=== PATIENT | male | born 1945 | race Caucasian/White ===

== ENCOUNTER 2017-08-04 05:21 | Inpatient (IN) | payer MEDICARE, OTHER ==
[2017-07-27 12:35] LABS: BASOPHILS % (AUTO) 0.4 % (0-1); EOSINOPHILS # (AUTO) 0.1 X10'3 (0-0.9); EOSINOPHILS % (AUTO) 1.4 % (0-6); LYMPHOCYTES # (AUTO) 0.9 X10'3 (1.1-4.8); LYMPHOCYTES % (AUTO) 15.8 % (21-51); MEAN CORPUSCULAR HEMOGLOBIN 32.2 PG (27.0-31.0); MEAN CORPUSCULAR HGB CONC 35.2 % (33.0-36.5); MEAN CORPUSCULAR VOLUME 91.4 FL (78-98); MEAN PLATELET VOLUME 8.5 FL (7.4-10.4); MONOCYTES # (AUTO) 0.4 X10'3 (0-0.9); MONOCYTES % (AUTO) 7.5 % (2-12); NEUTROPHILS # (AUTO) 4.3 X10'3 (1.8-7.7); NEUTROPHILS % (AUTO) 74.9 % (42-75); PRE OP HEMATOCRIT 39.5 % (42.0-52.0); PRE OP HEMOGLOBIN 13.9 g/dL (14.0-17.9); PRE OP PLATELET COUNT 254 X10'3 (140-440); RED BLOOD COUNT 4.32 X10'6 (4.70-6.10); RED CELL DISTRIBUTION WIDTH 13.2 % (11.5-14.5)
[2017-07-27 12:40] LABS: ALBUMIN 3.7 G/DL (3.4-5.0); ALBUMIN/GLOBULIN RATIO 0.7 (1.1-1.5); ALKALINE PHOSPHATASE 81 IU/L (46-116); BLOOD UREA NITROGEN 16 MG/DL (7-18); BUN/CREATININE RATIO 13.4 (5.4-32.0); CALCIUM 9.3 MG/DL (8.5-10.1); CHLORIDE 105 MMOL/L (99-107); CREATININE 1.19 MG/DL (0.60-1.10); PRE OP ALT 33 U/L (30-65); PRE OP ANION GAP 10 (8-16); PRE OP AST 20 U/L (10-37); PRE OP BILIRUB, TOTAL 0.5 MG/DL (0.0-1.0); PRE OP SODIUM 145 MMOL/L (135-145); TOTAL CARBON DIOXIDE 30.2 MMOL/L (24-32); eGFR 60 ML/MIN
[2017-07-27 12:43] LABS: CLARITY,URINE CLEAR (Clear); COLOR,URINE STRAW (Yellow); GLUCOSE, URINE NEGATIVE (Neg); KETONES,URINE NEGATIVE (Neg); LEUKOCYTE ESTERASE ,URINE NEGATIVE (Neg); NITRITES, URINE NEGATIVE (Neg); OCCULT BLOOD,URINE SMALL (Neg); PROTEIN,URINE NEGATIVE (Neg); UA COLLECTION TYPE CLN CATCH MIDSTREAM; UROBILINOGEN,URINE 0.2 E.U/dL (0.2-1.0)
[2017-07-27 12:50] LABS: BACTERIA,URINE FEW /HPF (Neg); RBC,URINE 0-2 /HPF (0-2); WBC,URINE NONE SEEN /HPF (0-4)
[2017-07-27 12:51] LABS: SQUAMOUS EPITHELIAL CELL,UR FEW /LPF (FEW)
[2017-07-27 12:56] LABS: PRE OP GLUCOSE 127 MG/DL (70-104)
[2017-07-29 15:07] LABS: PRE OP POTASSIUM 3.1 MMOL/L (3.4-5.1)
[~2017-08-04] VITALS: Ht 170.2 cm; Wt 95.3 kg
[2017-08-04] VITALS (25 sets, daily range): BP systolic 96–190; BP diastolic 50–101
[~2017-08-04 05:21] MED LIST: CLON0.1T20 PO; DULO60CA64 PO; HYDR28.457 TP; LEVO200T8 PO; LORA0.5T PO; LOSA1TAB39 PO; MELA3TAB PO; MELO-102 PO; METO50TA16 PO; MIRT45TA6 PO; TAMS0.4C32 PO; TRAM50TA2 PO
[2017-08-04] MEDS ORDERED: VANCOMYCIN INJ 1000 MG in NORMAL SALINE 250ml IV.SOLN IV ONE (05:30)
[2017-08-04] MEDS ORDERED: DOCUMENT DATE & TIME OF BETA-BLOCKER PO ONE (05:30)
[2017-08-04] MEDS ORDERED: famotidine 20mg tablet PO ONE (05:30)
[2017-08-04] MEDS ORDERED: cefazolin/dext.iso 2gm/50ml 50 ML IV ONE (05:30)
[2017-08-04] MEDS ORDERED: LIDOcaine 1% (10mg/ml) 2ml vial ONE (05:59)
[2017-08-04] MEDS: ringers solution, lacted 1,000 ML IV SCH ×5 (06:12→19:20)
[2017-08-04] MEDS ORDERED: ROPIVAcaine 0.5% (5mg/ml) 30ml vial ONE (06:37)
[2017-08-04] MEDS ORDERED: ketorolac trometh. 30mg/ml inj. ONE (06:37)
[2017-08-04 06:50] LABS: ISTAT CREATININE 1.1 mg/dL (0.8-1.3); ISTAT HGB 12.6 g/dl (14.0-18.0); ISTAT IONIZED CALCIUM 1.18 mmol/L (1.03-1.32); ISTAT K 3.5 mmol/L (3.5-5.1); POC BUN/CREATININE RATIO 18.2 (5.4-32.0)
[2017-08-04] MEDS ORDERED: tetracaine 1% (10mg/ml) pres. free inj. ONE (07:25)
[2017-08-04] MEDS ORDERED: fentaNYL/PF 50MCG/1 ML 2ML syringe ONE (07:27)
[2017-08-04] MEDS ORDERED: MIDAZolam 5mg/ml 2ml vial ONE (07:28)
[2017-08-04] MEDS ORDERED: ringers solution, lacted 1,000 ML IV SCH (08:38)
[2017-08-04] MEDS ORDERED: meperidine/PF 50mg/ml syringe IV PRN ×3 (08:40)
[2017-08-04] MEDS ORDERED: ondansetron/PF 4mg/2ml inj IV PRN (08:40)
[2017-08-04] MEDS ORDERED: proCHLORperazine 10 MG/2 ml inj IV PRN (08:40)
[2017-08-04] MEDS ORDERED: morphine 4 MG/ML inj SYRINge IV PRN ×2 (08:40)
[2017-08-04] MEDS ORDERED: ceFAZolin 1000mg inj ONE (10:03)
[2017-08-04] MEDS ORDERED: LORazepam 0.5 MG tablet PO PRN (10:40)
[2017-08-04] MEDS ORDERED: magnesium hydroxide 30ml (MOM) UD suspension PO PRN (10:45)
[2017-08-04] MEDS ORDERED: bisacodyl 10mg suppository rectal RC PRN (10:45)
[2017-08-04] MEDS ORDERED: mag hydrox/Alum hydrox/simeth 30ml oral suspension PO PRN (10:45)
[2017-08-04] MEDS ORDERED: CADD PCA waste documentation MC PRN (10:45)
[2017-08-04] MEDS ORDERED: acetaminophen 325mg tablet PO PRN (10:45)
[2017-08-04] MEDS ORDERED: naloxone 0.4 mg/ml inj IV PRN (10:45)
[2017-08-04] MEDS ORDERED: diphenhydrAMINE 25mg capsule PO PRN ×2 (10:45)
[2017-08-04] MEDS: HYDROmorphone/NS 1 mg/ml CADD 50 ML IV SCH ×8 (11:00→23:00)
[2017-08-04] MEDS: gabapentin 300mg capsule PO SCH ×2 (13:33→20:52)
[2017-08-04] MEDS: potassium cl 20mEq in 1/2 NS 1,000 ML IV SCH ×2 (15:46→18:42)
[2017-08-04] MEDS: cefazolin 1gm/NS 100mL 100 ML IV SCH (15:46)
[2017-08-04] MEDS: sennosides/docusate sodium tablet PO SCH (19:27)
[2017-08-04] MEDS: cloNIDine 0.1 mg tablet PO SCH (19:28)
[2017-08-04] MEDS: metoprolol tartrate 50mg tablet PO SCH (19:28)
[2017-08-04] MEDS: ascorbic acid 500mg tablet PO SCH (19:28)
[2017-08-04] MEDS: celeCOXIB 100mg capsule PO SCH (19:28)
[2017-08-04] MEDS ORDERED: vancomycin/NS 1 GM ADD-VANTAGE 250 ML IV SCH (20:00)
[2017-08-04] MEDS: mirtazapine 15mg tablet PO SCH (20:52)
[2017-08-04] MEDS: sennosides 8.6mg tablet PO SCH (20:52)
[2017-08-04] MEDS: Melatonin 3mg tablet PO SCH (20:52)
[2017-08-04] MEDS: tamsulosin 0.4mg capsule PO SCH (20:52)
[2017-08-05] VITALS (7 sets, daily range): BP systolic 118–189; BP diastolic 49–119
[2017-08-05] MEDS: cefazolin 1gm/NS 100mL 100 ML IV SCH (00:18)
[2017-08-05] MEDS: HYDROmorphone/NS 1 mg/ml CADD 50 ML IV SCH ×6 (01:00→10:54)
[2017-08-05] MEDS: ondansetron/PF 4mg/2ml inj IV PRN ×2 (01:43→09:14)
[2017-08-05] MEDS: potassium cl 20mEq in 1/2 NS 1,000 ML IV SCH ×3 (01:43→17:36)
[2017-08-05] MEDS: metoclopramide 5 mg/ml inj IV PRN ×2 (05:18→12:11)
[2017-08-05 07:43] LABS: BASOPHILS % (AUTO) 0.2 % (0-1); EOSINOPHILS # (AUTO) 0.1 X10'3 (0-0.9); EOSINOPHILS % (AUTO) 0.8 % (0-6); HEMATOCRIT 34.4 % (42.0-52.0); HEMOGLOBIN 11.9 g/dl (14.0-17.9); LYMPHOCYTES # (AUTO) 0.9 X10'3 (1.1-4.8); LYMPHOCYTES % (AUTO) 12.3 % (21-51); MEAN CORPUSCULAR HEMOGLOBIN 32.4 PG (27.0-31.0); MEAN CORPUSCULAR HGB CONC 34.7 % (33.0-36.5); MEAN CORPUSCULAR VOLUME 93.6 FL (78-98); MEAN PLATELET VOLUME 7.8 FL (7.4-10.4); MONOCYTES # (AUTO) 0.7 X10'3 (0-0.9); MONOCYTES % (AUTO) 8.9 % (2-12); NEUTROPHILS % (AUTO) 77.8 % (42-75); PLATELET COUNT 327 X10'3 (140-440); RED BLOOD COUNT 3.67 X10'6 (4.70-6.10); RED CELL DISTRIBUTION WIDTH 13.5 % (11.5-14.5); WHITE BLOOD COUNT 7.7 X10'3 (4.5-11.0)
[2017-08-05 07:53] LABS: ANION GAP 8 (8-16); CHLORIDE 101 MMOL/L (99-107); POTASSIUM 3.5 MMOL/L (3.5-5.1); SODIUM 138 MMOL/L (135-145)
[2017-08-05] MEDS ORDERED: naproxen 500mg tablet PO SCH (08:00)
[2017-08-05] MEDS ORDERED: LOSARTAN PO SCH (08:00)
[2017-08-05] MEDS ORDERED: HYDROCHLOROTHIAZIDE PO SCH (08:00)
[2017-08-05] MEDS: losartan 50mg tablet PO SCH (09:14)
[2017-08-05] MEDS: duloxetine 30mg CAPSULE.DR PO SCH (09:14)
[2017-08-05] MEDS: levoTHYROXINE 100mcg tablet PO SCH (09:14)
[2017-08-05] MEDS: metoprolol tartrate 50mg tablet PO SCH ×2 (09:14→21:56)
[2017-08-05] MEDS: multivitamins, therapeutics tablet PO SCH (09:15)
[2017-08-05] MEDS: enoxaparin 40mg/0.4ml syringe SQ SCH (09:15)
[2017-08-05] MEDS: ascorbic acid 500mg tablet PO SCH ×2 (09:15→21:56)
[2017-08-05] MEDS: cloNIDine 0.1 mg tablet PO SCH ×2 (09:16→21:56)
[2017-08-05] MEDS: gabapentin 300mg capsule PO SCH ×3 (09:27→21:55)
[2017-08-05] MEDS: celeCOXIB 100mg capsule PO SCH ×2 (09:27→21:56)
[2017-08-05] MEDS: HYDROchlorothiazide 12.5mg capsule PO SCH (09:27)
[2017-08-05] MEDS: sennosides/docusate sodium tablet PO SCH ×2 (09:27→21:56)
[2017-08-05] MEDS: HYDROcodone/acetaminophen 10/325mg tab PO PRN ×2 (13:28→17:36)
[2017-08-05] MEDS: tamsulosin 0.4mg capsule PO SCH (21:55)
[2017-08-05] MEDS: Melatonin 3mg tablet PO SCH (21:55)
[2017-08-05] MEDS: sennosides 8.6mg tablet PO SCH (21:55)
[2017-08-05] MEDS: mirtazapine 15mg tablet PO SCH (21:55)
[2017-08-06] MEDS: potassium cl 20mEq in 1/2 NS 1,000 ML IV SCH (01:10)
[2017-08-06 05:00] VITALS: BP 121/58
[2017-08-06 05:46] LABS: BASOPHILS % (AUTO) 0.2 % (0-1); EOSINOPHILS # (AUTO) 0.1 X10'3 (0-0.9); EOSINOPHILS % (AUTO) 1.8 % (0-6); HEMATOCRIT 24.4 % (42.0-52.0); HEMOGLOBIN 8.7 g/dl (14.0-17.9); LYMPHOCYTES % (AUTO) 17.5 % (21-51); MEAN CORPUSCULAR HEMOGLOBIN 32.8 PG (27.0-31.0); MEAN CORPUSCULAR HGB CONC 35.5 % (33.0-36.5); MEAN CORPUSCULAR VOLUME 92.5 FL (78-98); MEAN PLATELET VOLUME 7.9 FL (7.4-10.4); MONOCYTES # (AUTO) 0.6 X10'3 (0-0.9); MONOCYTES % (AUTO) 10.9 % (2-12); NEUTROPHILS % (AUTO) 69.6 % (42-75); PLATELET COUNT 198 X10'3 (140-440); RED BLOOD COUNT 2.64 X10'6 (4.70-6.10); RED CELL DISTRIBUTION WIDTH 13.5 % (11.5-14.5); WHITE BLOOD COUNT 5.8 X10'3 (4.5-11.0)
[2017-08-06] MEDS: gabapentin 300mg capsule PO SCH ×3 (07:25→20:58)
[2017-08-06] MEDS: metoprolol tartrate 50mg tablet PO SCH ×2 (07:25→20:00)
[2017-08-06] MEDS: duloxetine 30mg CAPSULE.DR PO SCH (07:25)
[2017-08-06] MEDS: multivitamins, therapeutics tablet PO SCH (07:25)
[2017-08-06] MEDS: sennosides/docusate sodium tablet PO SCH ×2 (07:26→20:56)
[2017-08-06] MEDS: levoTHYROXINE 100mcg tablet PO SCH (07:26)
[2017-08-06] MEDS: celeCOXIB 100mg capsule PO SCH ×2 (07:26→20:56)
[2017-08-06] MEDS: HYDROchlorothiazide 12.5mg capsule PO SCH (07:26)
[2017-08-06] MEDS: cloNIDine 0.1 mg tablet PO SCH ×2 (07:26→20:00)
[2017-08-06] MEDS: ascorbic acid 500mg tablet PO SCH ×2 (07:26→20:57)
[2017-08-06] MEDS: enoxaparin 40mg/0.4ml syringe SQ SCH (07:26)
[2017-08-06] MEDS: losartan 50mg tablet PO SCH (07:27)
[2017-08-06] MEDS: HYDROcodone/acetaminophen 10/325mg tab PO PRN ×3 (07:27→19:17)
[2017-08-06 10:00] VITALS: BP 98/51
[2017-08-06 19:00] VITALS: BP 96/41
[2017-08-06] MEDS: tamsulosin 0.4mg capsule PO SCH (20:57)
[2017-08-06] MEDS: Melatonin 3mg tablet PO SCH (20:57)
[2017-08-06] MEDS: mirtazapine 15mg tablet PO SCH (20:58)
[2017-08-06] MEDS: sennosides 8.6mg tablet PO SCH (20:58)
[2017-08-06 22:00] VITALS: BP 114/65
[2017-08-07 06:00] VITALS: BP 154/85
[2017-08-07 06:22] LABS: BASOPHILS % (AUTO) 0.5 % (0-1); EOSINOPHILS # (AUTO) 0.1 X10'3 (0-0.9); EOSINOPHILS % (AUTO) 1.8 % (0-6); HEMATOCRIT 26.9 % (42.0-52.0); HEMOGLOBIN 9.5 g/dl (14.0-17.9); LYMPHOCYTES # (AUTO) 0.9 X10'3 (1.1-4.8); LYMPHOCYTES % (AUTO) 14.4 % (21-51); MEAN CORPUSCULAR HEMOGLOBIN 32.8 PG (27.0-31.0); MEAN CORPUSCULAR HGB CONC 35.3 % (33.0-36.5); MEAN CORPUSCULAR VOLUME 92.8 FL (78-98); MONOCYTES # (AUTO) 0.6 X10'3 (0-0.9); NEUTROPHILS # (AUTO) 4.5 X10'3 (1.8-7.7); NEUTROPHILS % (AUTO) 73.3 % (42-75); PLATELET COUNT 243 X10'3 (140-440); RED CELL DISTRIBUTION WIDTH 13.1 % (11.5-14.5); WHITE BLOOD COUNT 6.1 X10'3 (4.5-11.0)
[2017-08-07] MEDS: multivitamins, therapeutics tablet PO SCH (07:41)
[2017-08-07] MEDS: enoxaparin 40mg/0.4ml syringe SQ SCH (07:41)
[2017-08-07] MEDS: levoTHYROXINE 100mcg tablet PO SCH (07:42)
[2017-08-07] MEDS: ascorbic acid 500mg tablet PO SCH ×2 (07:42→19:54)
[2017-08-07] MEDS: sennosides/docusate sodium tablet PO SCH ×2 (07:43→20:00)
[2017-08-07] MEDS: duloxetine 30mg CAPSULE.DR PO SCH (07:43)
[2017-08-07] MEDS: HYDROchlorothiazide 12.5mg capsule PO SCH (07:43)
[2017-08-07] MEDS: metoprolol tartrate 50mg tablet PO SCH ×2 (07:43→19:55)
[2017-08-07] MEDS: gabapentin 300mg capsule PO SCH ×3 (07:43→20:57)
[2017-08-07] MEDS: cloNIDine 0.1 mg tablet PO SCH ×2 (07:44→19:54)
[2017-08-07] MEDS: losartan 50mg tablet PO SCH (07:44)
[2017-08-07] MEDS: celeCOXIB 100mg capsule PO SCH ×2 (07:44→19:53)
[2017-08-07 10:00] VITALS: BP 95/52
[2017-08-07 18:00] VITALS: BP 135/87
[2017-08-07] MEDS: tamsulosin 0.4mg capsule PO SCH (20:57)
[2017-08-07] MEDS: Melatonin 3mg tablet PO SCH (20:57)
[2017-08-07] MEDS: mirtazapine 15mg tablet PO SCH (20:58)
[2017-08-07 21:00] VITALS: BP 164/92
[2017-08-07] MEDS: sennosides 8.6mg tablet PO SCH (21:00)
[2017-08-07 22:00] VITALS: BP 196/95
[2017-08-08] VITALS (7 sets, daily range): BP systolic 140–199; BP diastolic 90–114
[2017-08-08] MEDS: ondansetron/PF 4mg/2ml inj IV PRN (01:15)
[2017-08-08] MEDS: HYDROcodone/acetaminophen 10/325mg tab PO PRN (05:04)
[2017-08-08] MEDS: metoclopramide 5 mg/ml inj IV PRN ×3 (05:46→21:52)
[2017-08-08 07:49] LABS: ALANINE AMINOTRANSFERASE 41 U/L (12-78); ALBUMIN 2.6 G/DL (3.4-5.0); ALBUMIN/GLOBULIN RATIO 0.4 (1.1-1.5); ALKALINE PHOSPHATASE 62 IU/L (46-116); ANION GAP 9 (8-16); ASPARTATE AMINO TRANSFERASE 82 U/L (10-37); BILIRUBIN,TOTAL 0.7 MG/DL (0.1-1.0); BLOOD UREA NITROGEN 16 MG/DL (7-18); CHLORIDE 104 MMOL/L (99-107); CREATININE 1.07 MG/DL (0.60-1.10); GLUCOSE 171 MG/DL (70-104); POTASSIUM 3.4 MMOL/L (3.5-5.1); SODIUM 144 MMOL/L (135-145); TOTAL CARBON DIOXIDE 30.8 MMOL/L (24-32); TOTAL PROTEIN 8.4 G/DL (6.4-8.2); eGFR 68 ML/MIN
[2017-08-08] MEDS ORDERED: metoprolol tartrate 50mg tablet PO SCH (08:00)
[2017-08-08] MEDS: sennosides/docusate sodium tablet PO SCH ×2 (08:00→20:00)
[2017-08-08] MEDS: multivitamins, therapeutics tablet PO SCH (08:23)
[2017-08-08] MEDS: cloNIDine 0.1 mg tablet PO SCH ×2 (08:24→20:28)
[2017-08-08] MEDS: levoTHYROXINE 100mcg tablet PO SCH (08:24)
[2017-08-08] MEDS: ascorbic acid 500mg tablet PO SCH ×2 (08:26→20:28)
[2017-08-08] MEDS: duloxetine 30mg CAPSULE.DR PO SCH (08:26)
[2017-08-08] MEDS: HYDROchlorothiazide 12.5mg capsule PO SCH (08:26)
[2017-08-08] MEDS: losartan 50mg tablet PO SCH (08:28)
[2017-08-08] MEDS: gabapentin 300mg capsule PO SCH ×3 (08:29→21:52)
[2017-08-08] MEDS: celeCOXIB 100mg capsule PO SCH ×2 (08:29→20:28)
[2017-08-08] MEDS: enoxaparin 40mg/0.4ml syringe SQ SCH (08:31)
[2017-08-08] MEDS ORDERED: potassium Cl 20 mEq SR tablet PO PRN (08:50)
[2017-08-08] MEDS ORDERED: potassium Cl 40MEQ/NS 500ml 500 ML IV PRN ×2 (08:50)
[2017-08-08] MEDS: potassium Cl 20 mEq SR tablet PO PRN ×3 (10:09→19:40)
[2017-08-08] MEDS ORDERED: iohexol 350MG/ML 100ml bottle IV ONE (13:33)
[2017-08-08] MEDS ORDERED: furosemide 40mg/4ml inj IV ONE (18:30)
[2017-08-08] MEDS: metoprolol tartrate 50mg tablet PO SCH (20:29)
[2017-08-08] MEDS: sennosides 8.6mg tablet PO SCH (21:00)
[2017-08-08] MEDS: Melatonin 3mg tablet PO SCH (21:52)
[2017-08-08] MEDS: mirtazapine 15mg tablet PO SCH (21:52)
[2017-08-08] MEDS: tamsulosin 0.4mg capsule PO SCH (21:52)
[2017-08-09] MEDS: metoclopramide 5 mg/ml inj IV PRN (04:01)
[2017-08-09] MEDS: HYDROcodone/acetaminophen 10/325mg tab PO PRN (04:10)
[2017-08-09 06:00] VITALS: BP 161/89
[2017-08-09] MEDS: metoprolol tartrate 50mg tablet PO SCH (08:00)
[2017-08-09] MEDS: celeCOXIB 100mg capsule PO SCH (08:00)
[2017-08-09] MEDS: HYDROchlorothiazide 12.5mg capsule PO SCH (08:00)
[2017-08-09] MEDS ORDERED: K and/or MAG REPLACEMENT MC SCH (08:00)
[2017-08-09] MEDS: cloNIDine 0.1 mg tablet PO SCH (08:00)
[2017-08-09] MEDS: multivitamins, therapeutics tablet PO SCH (08:00)
[2017-08-09] MEDS: sennosides/docusate sodium tablet PO SCH (08:00)
[2017-08-09] MEDS: losartan 50mg tablet PO SCH (08:00)
[2017-08-09] MEDS: enoxaparin 40mg/0.4ml syringe SQ SCH (08:00)
[2017-08-09] MEDS: duloxetine 30mg CAPSULE.DR PO SCH (08:00)
[2017-08-09] MEDS: ascorbic acid 500mg tablet PO SCH (08:00)
[2017-08-09] MEDS: levoTHYROXINE 100mcg tablet PO SCH (08:00)
[2017-08-09] MEDS: gabapentin 300mg capsule PO SCH ×2 (08:00→13:06)
[2017-08-09 09:04] LABS: PROTHROMBIN TIME 9.9 SECONDS (9.0-12.0)
[2017-08-09 10:00] VITALS: BP 119/73
[2017-08-09] MEDS ORDERED: warfarin 7.5mg tablet PO ONE (10:00)
== END 2017-08-09 14:20 | DRG 470 ==
LOC: PAS 05:21 → EDSTATUS 07:30 → ORTHO 4S 10:42
PROVIDERS: ADMIT Orthopaedic Surgery; ATTEND Orthopaedic Surgery
PROC: 0SRB0JZ Replacement of Left Hip Joint with Synthetic Substitute, Open Approach (ICD-10-PCS; principal; 2017-08-04 07:24)
PROC: B3201ZZ Computerized Tomography (CT Scan) of Thoracic Aorta using Low Osmolar Contrast (ICD-10-PCS; 2017-08-08)
DX: M16.12 Unilateral primary osteoarthritis, left hip (principal); E66.01 Morbid (severe) obesity due to excess calories; D62 Acute posthemorrhagic anemia; E03.9 Hypothyroidism, unspecified; N40.0 Benign prostatic hyperplasia without lower urinary tract symptoms; I10 Essential (primary) hypertension; F41.9 Anxiety disorder, unspecified; M19.012 Primary osteoarthritis, left shoulder; M17.0 Bilateral primary osteoarthritis of knee; E78.5 Hyperlipidemia, unspecified; M75.42 Impingement syndrome of left shoulder; M54.16 Radiculopathy, lumbar region; E87.6 Hypokalemia; F32.9 Major depressive disorder, single episode, unspecified; G47.00 Insomnia, unspecified; R00.0 Tachycardia, unspecified; R11.2 Nausea with vomiting, unspecified; Z88.6 Allergy status to analgesic agent; Z79.899 Other long term (current) drug therapy; Z68.32 Body mass index [BMI] 32.0-32.9, adult
CPT/HCPCS: 36415; 71045; 71275; 73502; 74018; 76001; 80047; 80051; 80053; 81001; 83880; 84443; 85025; 85610; 85730; 86885; 86900; 86901; 87070; 93005; 97110; 97116; 97162; 97530; A6212; A6250; A6257; A6258; A6446; A6449; A6454; A7000; C1758; C1776; J0690; J1170; J1644; J1650; J1885; J1940; J2250; J2405; J2765; J2795; J3010; J3370; J3490; J7030; J7120; Q9967

== ENCOUNTER 2017-09-07 14:11 | Outpatient (CLI) | payer MEDICARE, OTHER | END 2017-09-07 23:59 | disposition home or self-care (01) | LOC: VAS 14:11 | PROVIDERS: ATTEND Orthopaedic Surgery | DX: M16.12 Unilateral primary osteoarthritis, left hip (principal); I10 Essential (primary) hypertension; R59.0 Localized enlarged lymph nodes; Z96.642 Presence of left artificial hip joint | CPT/HCPCS: 93971 ==

== ENCOUNTER 2022-01-13 12:06 | Emergency (ER) | payer MEDICARE, OTHER ==
[~2022-01-13] VITALS: Ht 177.8 cm; Wt 95.5 kg
[~2022-01-13 12:06] MED LIST changes: +CLON0.1T2 PO; -CLON0.1T20 PO; -DULO60CA64 PO; +DULO60CA65 PO; -MELA3TAB PO; +MELA3TAB39 PO; -MIRT45TA6 PO; +MIRT45TA83 PO
[2022-01-13 12:37] LABS: BASOPHILS % (AUTO) 0.2 % (0-1); EOSINOPHILS # (AUTO) 0.1 X10'3 (0-0.9); EOSINOPHILS % (AUTO) 0.6 % (0-6); HEMATOCRIT 35.9 % (42.0-52.0); HEMOGLOBIN 12.3 g/dl (14.0-17.9); LYMPHOCYTES # (AUTO) 0.5 X10'3 (1.1-4.8); LYMPHOCYTES % (AUTO) 5.5 % (21-51); MEAN CORPUSCULAR HEMOGLOBIN 30.4 PG (27.0-31.0); MEAN CORPUSCULAR HGB CONC 34.4 g/dL (33.0-36.5); MEAN CORPUSCULAR VOLUME 88.6 FL (78-98); MEAN PLATELET VOLUME 9.1 FL (7.4-10.4); MONOCYTES # (AUTO) 1.5 X10'3 (0-0.9); MONOCYTES % (AUTO) 15.2 % (2-12); NEUTROPHILS # (AUTO) 7.6 X10'3 (1.8-7.7); NEUTROPHILS % (AUTO) 78.5 % (42-75); PLATELET COUNT 146 X10'3 (140-440); RED BLOOD COUNT 4.05 X10'6 (4.70-6.10); RED CELL DISTRIBUTION WIDTH 15.2 % (11.5-14.5); WHITE BLOOD COUNT 9.6 X10'3 (4.5-11.0)
[2022-01-13 12:58] LABS: ALANINE AMINOTRANSFERASE 40 U/L (12-78); ALBUMIN 2.7 G/DL (3.4-5.0); ALBUMIN/GLOBULIN RATIO 0.6 (1.1-1.5); ALKALINE PHOSPHATASE 75 IU/L (46-116); ANION GAP 9 (8-16); ASPARTATE AMINO TRANSFERASE 23 U/L (10-37); BLOOD UREA NITROGEN 14 MG/DL (7-18); BUN/CREATININE RATIO 11.1 (5.4-32.0); CALCIUM 8.7 MG/DL (8.5-10.1); CHLORIDE 101 MMOL/L (99-107); CREATININE 1.26 MG/DL (0.60-1.10); GLUCOSE 147 MG/DL (70-104); SODIUM 136 MMOL/L (135-145); TOTAL CARBON DIOXIDE 25.6 MMOL/L (24-32); TOTAL PROTEIN 7.4 G/DL (6.4-8.2); eGFR 55 ML/MIN
[2022-01-13 13:01] LABS: POTASSIUM 2.9 MMOL/L (3.5-5.1)
[2022-01-13] MEDS ORDERED: acetaminophen 325mg tablet PO STA (14:05)
[2022-01-13] MEDS ORDERED: CefTRIAXone 2gm/D5W 50ml BAG 50 ML IV ONE (14:05)
[2022-01-13] MEDS ORDERED: normal saline 1000ML IV soln IV ONE (14:05)
[2022-01-13] MEDS ORDERED: potassium Cl 10 mEq/100mL bag IV ONE (14:20)
[2022-01-13] MEDS ORDERED: potassium Cl 20 mEq SR tablet PO STA (14:20)
[2022-01-13 14:58] LABS: LACTIC SEPSIS 1.3 MMOL/L (0.4-2.0)
[2022-01-13 15:20] LABS: AMMONIA < 10 UMOL/L (11-32)
[2022-01-13] MEDS ORDERED: levoFLOXACIN 250mg tablet PO ONE (16:50)
[2022-01-13] MEDS ORDERED: CIPR-202 PO (16:59)
[2022-01-13] MEDS ORDERED: PRED20TA PO (16:59)
[2022-01-13] MEDS ORDERED: ONDA4TAB12 PO (16:59)
[2022-01-13 17:13] VITALS: BP 130/78
== END 2022-01-13 17:18 | disposition home or self-care (01) ==
LOC: ER 12:07
DX: K52.9 Noninfective gastroenteritis and colitis, unspecified (principal); Z20.822 Contact with and (suspected) exposure to COVID-19; R51.9 Headache, unspecified; R07.2 Precordial pain; R53.1 Weakness; R50.9 Fever, unspecified; J18.9 Pneumonia, unspecified organism; I10 Essential (primary) hypertension; F41.9 Anxiety disorder, unspecified; F32.A Depression, unspecified; Z85.9 Personal history of malignant neoplasm, unspecified; Z72.89 Other problems related to lifestyle; Z88.6 Allergy status to analgesic agent; Z79.2 Long term (current) use of antibiotics; Z79.899 Other long term (current) drug therapy
CPT/HCPCS: 36415; 70450; 71045; 74176; 80053; 82140; 83605; 83880; 84145; 84484; 85025; 87040; 87635; 87811; 93005; 96361; 96374; 99285; C9803; J0696; J3480; J7030

== ENCOUNTER 2022-06-20 11:48 | Emergency (ER) | payer MEDICARE, OTHER ==
[~2022-06-20] VITALS: Ht 165.1 cm; Wt 99.1 kg
[~2022-06-20 11:48] MED LIST changes: +ONDA4TAB12 PO
--- NOTE | 2022-06-20 12:37 | NUR ---
I have reviewed and agree with all interventions, assessments performed and documented by RENATO Cary.
[2022-06-20 13:38] VITALS: BP 143/71
== END 2022-06-20 13:41 | disposition home or self-care (01) ==
LOC: ER 11:49
DX: S61.411A Laceration without foreign body of right hand, initial encounter (principal); S30.811A Abrasion of abdominal wall, initial encounter; S00.31XA Abrasion of nose, initial encounter; I10 Essential (primary) hypertension; F31.9 Bipolar disorder, unspecified; E03.9 Hypothyroidism, unspecified; Z88.6 Allergy status to analgesic agent; Z88.8 Allergy status to other drugs, medicaments and biological substances; Z79.899 Other long term (current) drug therapy; Z79.1 Long term (current) use of non-steroidal anti-inflammatories (NSAID); Z79.2 Long term (current) use of antibiotics; W45.8XXA Other foreign body or object entering through skin, initial encounter; Y93.89 Activity, other specified; Y92.89 Other specified places as the place of occurrence of the external cause; Y99.8 Other external cause status
CPT/HCPCS: 70450; 70486; 72125; 99284

== ENCOUNTER 2024-12-18 10:21 | Day surgery (SDC) | payer MEDICARE, OTHER ==
[2024-12-17 13:37] LABS: MEAN PLATELET VOLUME 8.3 FL (7.4-10.4); RED CELL DISTRIBUTION WIDTH 14.3 % (11.5-14.5)
[2024-12-17 13:49] LABS: APTT 27 SECONDS (22-32); INR 1.1 INR
[2024-12-17 13:55] LABS: CHOL/HDL RATIO 3.6 (0.00-4.99); CREATININE 1.26 MG/DL (0.60-1.10); LDL CHOLESTEROL 83 MG/DL (50-100); TOTAL CARBON DIOXIDE 28.9 MMOL/L (24-32); eGFR 55 ML/MIN
[~2024-12-18] VITALS: Ht 167.6 cm; Wt 96.9 kg
[~2024-12-18 10:21] MED LIST changes: +ONDA-243 PO; -ONDA4TAB12 PO
[2024-12-18] MEDS ORDERED: fentaNYL/PF 50MCG/1 ML 2ML syringe IV ONE (10:45)
[2024-12-18] MEDS ORDERED: MIDAZolam 1mg/ml 10ml vial IV ONE (10:45)
[2024-12-18] MEDS ORDERED: normal saline 1000ml 1,000 ML IV SCH (10:45)
[2024-12-18 10:49] VITALS: BP 127/96; PULSE 112; RESP 16; TEMP 97.6; O2SAT 96
[2024-12-18] MEDS ORDERED: APIX5TAB3 PO (11:04)
[2024-12-18] MEDS ORDERED: OXYB5TAB21 PO (11:04)
[2024-12-18] MEDS ORDERED: AMLO-381 PO (11:04)
[2024-12-18] MEDS ORDERED: CARV-50 PO (11:04)
[2024-12-18] MEDS ORDERED: AMIO200T76 PO (11:04)
[2024-12-18] MEDS ORDERED: CARB1TAB35 PO (11:04)
[2024-12-18] MEDS ORDERED: POTA-366 PO (11:04)
[2024-12-18] MEDS ORDERED: LEVO150T8 PO (11:08)
[2024-12-18] MEDS ORDERED: HYDR-3964 PO (11:08)
[2024-12-18] MEDS ORDERED: midazolam 1 mg/ML 2ml injection ONE (13:05)
[2024-12-18] MEDS ORDERED: fentaNYL/PF 50MCG/1 ML 2ML syringe ONE (13:06)
[2024-12-18 13:50] VITALS: BP 129/86; PULSE 74; RESP 16; O2SAT 94
[2024-12-18 14:00] VITALS: BP 136/86; PULSE 82; RESP 14; O2SAT 94
--- NOTE | 2024-12-18 14:04 | ELECTROCARDIOGRAPH REPORT ---
[facility] Test Date: 2024-12-18 Test Time: 14:02:17 Pat Name: CYNTHIA MORALES Department: [facility] Patient ID: [id number] Room: Gender: M Mailroom Clerk: MERI : 1945 Requested By: MARVA MENDOZA Order Number: [id number] Reading MD: Dr. ARTURO Pederson Measurements Intervals [place] Rate: 76 P: 47 MD: 221 QRS: -11 QRSD: 117 T: 47 QT: 411 QTc: 463 Interpretive Statements Sinus rhythm Ventricular premature complex Prolonged MD interval Nonspecific intraventricular conduction delay Electronically Signed On 12-18-2024 17:27:[address] ARTURO Pederson Please click the below link to view image of tracing.
[2024-12-18 14:15] VITALS: BP 132/89; PULSE 79; RESP 16; O2SAT 93
[2024-12-18 14:30] VITALS: BP 132/93; PULSE 78; RESP 14; O2SAT 94
== END 2024-12-18 14:30 | disposition home or self-care (01) ==
LOC: SSTAY O 10:21
PROVIDERS: ATTEND Student in an Organized Health Care Education/Training Program
DX: I48.91 Unspecified atrial fibrillation (principal); I49.3 Ventricular premature depolarization; R94.31 Abnormal electrocardiogram [ECG] [EKG]; I10 Essential (primary) hypertension; E78.00 Pure hypercholesterolemia, unspecified; I42.9 Cardiomyopathy, unspecified; F32.A Depression, unspecified; M19.90 Unspecified osteoarthritis, unspecified site; Z79.01 Long term (current) use of anticoagulants; Z79.2 Long term (current) use of antibiotics; Z79.890 Hormone replacement therapy; Z79.891 Long term (current) use of opiate analgesic; Z79.899 Other long term (current) drug therapy; Z88.6 Allergy status to analgesic agent
CPT/HCPCS: 36415; 80048; 80061; 83695; 85025; 85610; 85730; 92960; 93005; J2250; J3010; J7030; Z7610; 99152; 99153